=== PATIENT | female | born 1945 | race Caucasian/White ===

== ENCOUNTER 2024-12-29 10:11 | Inpatient (IN) | payer MEDICARE, BC, SELFPAY ==
[2024-12-29] VITALS (10 sets, daily range): BP systolic 127–236; BP diastolic 64–141; PULSE 64–82; RESP 15–20; TEMP 36.1–37; O2SAT 96–99
--- NOTE | 2024-12-29 | XR_ITS ---
Examination: MRI brain without intravenous contrast. Date and time of exam: December 29, 2024 at 1624 hrs. Indications: Altered mental status confusion with left-sided body numbness beginning 2 days ago Technique: Multiple axial and sagittal images of the brain obtained. Siemens high-resolution 1.5 Ginny short bore scanners utilized. Sagittal sections, T1-weighted, TR 500, TE 14, are performed. Axial sections proton-density and T2-weighted have been obtained. Inversion recovery axial images, TR 9, 260, TE 111, TI 2500. Diffusion weighted images, axial sections, TR 4800, TE 128, B value 1000 Axial sections, ADC map, TR 4800, TE 128 Findings: Enlargement of the sella turcica is not present. The optic chiasm and infundibular are not remarkable. Prepontine and interpeduncular cisterns are not enlarged. There is no localized enlargement of the medulla or karrie. Fourth ventricle and cerebellar tonsils appear normal in position. No subacute area of hemorrhage density is seen. Mass in the cerebellopontine angle region is not evident. Globes symmetrical. Orbital musculature including medial lateral rectus muscles do not exhibit abnormality. Diffusion-weighted images demonstrate no focus of restricted diffusion. Increased white matter signal prominent Mass effect upon the ventricular system is not identified. Impression: Negative for acute hemorrhage mass effect or midline shift No acute infarct Prominent chronic microvascular white matter change
--- NOTE | 2024-12-29 10:17 | EKG_ITS ---
[facility] Test Date: 2024-12-29 Pat Name: JERI AZUL Department: Room: - Gender: Female Sports Analyst: : 1945 Requested By: Raul Sharp Order Number: [id number] Reading MD: Raul Sharp Measurements Intervals [place] Rate: 65 P: 21 MT: 188 QRS: -36 QRSD: 102 T: 20 QT: 407 QTc: 426 Interpretive Statements SINUS RHYTHM LEFT AXIS DEVIATION [QRS AXIS < -30] VOLTAGE CRITERIA FOR LVH [MEETS CRITERIA IN ONE OF: R(aVL), S(V1), R(V5), R(V5/V6)+S(V1)] Compared to ECG 03/19/2024 14:44:11 No significant changes /store/S0/[id number].pdf
--- NOTE | 2024-12-29 10:18 | PC.NURSE ---
PT BIB [facility] PT CC: HTN PT STATES SHE FEELS FOGGY, GSC 15 PER EMS, INFORMED PT EMS THAT 2 DAYS PRIOR SHE HAD NUMBNESS TO RIGHT ARM AND FACIAL DROOP FOR 30 MIN BUT WENT AWAY. PT BP PER EMS WAS 260/100. 259/128. PT HAS HX OF HYPOTENSION. STOPPED A B/P MED NOT SURE WHICH ONE
--- NOTE | 2024-12-29 10:25 | PC.NURSE ---
PT IS AAOX4 SHE IS HAVING SOME DIFFICULTY FINDING WORDS, SHE STATES SHE WOKE UP 0600 AND FELT FINE FED HER ANIMALS AND HAD COFFEE WENT TO SIT AT [employer] AND FELT FOGGY AND DIZZY WAS TRYING TO FIND WORDS. WORKER CALLED AMBULANCE, SHE ALSO STATES THAT TWO DAYS PRIOR SHE HAD NUMBNESS AND FACIAL DROOP, TWICE BUT WENT AWAY WITH IN 30 MIN. SHE STATES LKW 0630.
--- NOTE | 2024-12-29 10:31 | PC.NURSE ---
STROKE ALERT CALLED [phone]
--- NOTE | 2024-12-29 10:32 | XR_ITS ---
Examination: CT brain head without contrast. 2-D sagittal coronal reconstructions Date and time of exam:December 29, 2024 10:30 AM Indications: Stroke alert, onset dizziness with slurred speech beginning 4 hours ago CTDI: vol (mGy):50.4 DLP: (mGycm):1021 Technique: Multiple CT axial sections of the brain have been obtained, 5 mm slice thickness. Contrast has not been administered. 2-D sagittal, coronal reconstructions have been obtained Low dose protocols were performed. One or more of the following dose reduction techniques were used; automated exposure control, adjustment of the mA and/or KV according to patient size, use of iterative reconstruction technique. Findings: No significant ventricular enlargement. Old infarct left cerebellar hemisphere Intra-axial or extra-axial hemorrhage density is not seen. No mass effect or midline shift Basal cisterns are not remarkable. Fourth ventricle is midline. Cranial vault intact. Impression: Negative for acute hemorrhage, mass effect or midline shift Consider brain MRI MRA without contrast, stroke protocol, follow-up
--- NOTE | 2024-12-29 10:32 | XR_ITS ---
Examination: CTA carotids with intravenous contrast CTA brain, head with intravenous contrast. 2-D sagittal, coronal reconstructions. 3-D reconstructions. Exam date and time: December 29, 2024 at 1055 hrs. CTDI: vol (mGy) 45.2 DLP: (mGycm) 505 Technique: Multiple CTA axial brain, head carotid images post intravenous contrast injection 75 cc, Isovue-370. 2-D sagittal, coronal reconstructions. 3-D reconstructions, 3-D post processing including vascular maximum intensity projection images. Low dose protocols were performed. One or more of the following dose reduction techniques were used; automated exposure control, adjustment of the mA and/or KV according to patient size, use of iterative reconstruction technique. Findings: Parenchymal disease which may represent scarring in the right upper lobe No significant common carotid carotid bifurcation or internal carotid artery stenoses Dominant right vertebral artery in the neck with no critical stenoses No cerebral large vessel arterial occlusions or thrombus Moderate calcification juxtasellar portions of the internal carotid arteries Impression: Parenchymal disease in the right upper lobe, recommend correlation with PA lateral chest x-ray No significant neck arterial stenoses No cerebral large vessel arterial occlusions or thrombus
--- NOTE | 2024-12-29 10:47 | EDNOTE_ITS ---
Neuro Symptoms Deficit-RME/HPI General Chief Complaint: Dizziness Stated Complaint: HYPERTENSION Time Seen by Provider: 12/29/24 10:31 Arrival date/time: 12/29/24 10:11 RME / HPI RME / HPI Narrative: 79 year old female history of hypertension presents to the ED BIBA from home for evaluation of dizziness and feeling foggy this morning. Patient states she woke at 06:00 AM today and felt at her baseline, made herself coffee and fed her dogs. States at about 06:30 AM she sat down in front of her computer and was trying to look for a receipt. However stated she had troubles and during that time felt confused and foggy . Patient additionally reported 2 days ago and while at the store grocery shopping she suddenly felt left sided numbness that had resolved on its own within 30 minutes. Per medics, patient hypertensive 260/100, BS 104. Patient denies fevers, chills, chest pain, sweats, abdominal pain, n/v/d, or urinary symptoms. Denies loss of movement/strength. Related Data Home Medications ?Medication ?Instructions ?Recorded ?Confirmed meloxicam 15 mg tablet 15 mg PO QDAY 12/29/2412/29 rosuvastatin 20 mg tablet 20 mg PO QDAY 12/29/2412/29 Previous Rx's ?Medication ?Instructions ?Recorded Metoprolol Tartrate 25 mg PO BID 60 days #0 tabs 07/30/14 amlodipine 5 mg tablet (Norvasc) 5 mg PO QDAY #30 tabs 07/30/14 valsartan 80 mg tablet (Diovan) 80 mg PO QDAY 30 days #0 tabs 07/30/14 cefuroxime axetil 500 mg tablet 500 mg PO BID #14 tabs 03/19/24 Allergies Allergy/AdvReac Type Severity Reaction Status Date / Time NKA* Allergy Uncoded 07/29/14 13:19 Review of Systems Review of Systems Narrative Review of Systems: Constitutional: DENIES; Fevers Eyes: DENIES; Loss of vision Head/Ear/Nose: DENIES; Loss of hearing Throat: DENIES; Dysphagia Cardiovascular: DENIES; Chest pain, dyspnea or syncope Respiratory: DENIES; Shortness of breath Gastrointestinal: DENIES; Rectal bleeding or melena. Genitourinary: DENIES; Dysuria (painful or difficult urination) Musculoskeletal: DENIES; Arthralgia (pain in a joint),; Skin: DENIES; Rash Neurological: SEE HPI +word finding difficulties, feeling foggy and confused Psychiatric: DENIES; recent major life stressor, emotional problem, illicit drug use or abuse Endocrinology: DENIES; Weight change Hematologic/Lymphatic: DENIES; Abnormal bruising Allergic/Immunologic: DENIES; Urticaria (hives) Past Medical History Past Medical History CARDIAC: Positive Cardiac Disorders, Hypercholesterolemia and Hypertension RESPIRATORY: Positive Bronchitis and Pneumonia REPRODUCTIVE: Positive Previous Pregnancies (2) MUSCULOSKELETAL: Positive Musculoskeletal Disorders, Arthritis and Degenerative Disk Disease ENT: Positive Cataracts (BILATERAL) PSYCHO/SOCIAL: Positive Bipolar Disorder, Depression and Anxiety OTHER HISTORY: Positive Chicken Pox and Cervical Cancer (UTERUS REMOVAL) Surgical History SURGICAL: Positive Oral Surgery (DENTAL IMPLANT), Adenoidectomy and Throat Surgery (TONSILS) Social History SMOKING STATUS: Former smoker ED Exam Narrative Physical exam: Physical Exam: General: The vital signs were reviewed. Systolic blood pressure is quite high in the 213 range. Otherwise the patient is non-toxic, in no apparent distress and appears healthy with a patent airway, no respiratory distress and has no apparent circulatory problems. Head & Scalp: Normocephalic, atraumatic. Face: Appears normal and is without lesions, deformity. Ears: Left external pinna appears normal. Right external pinna appears normal. Eyes: The sclera is anicteric. No obvious photophobia. The Left and Right Orbit/Lid/Conjunctiva appears normal without swelling, discoloration or injection. Nose: The nose is without deformity, discharge or tenderness; Throat: Appears normal. The mucous membranes are pink and moist without exudates, redness or mass seen. The tongue appears normal. Neck: The neck is supple and no apparent mass or adenopathy. Chest: The chest wall is normal in size and symmetry and has no chest wall tenderness or crepitus. The patient displays normal ventilator effort without retractions, accessory muscle use and has adequate air movement bilaterally with no wheezes and no rales. Cardiovascular: Regular rate and rhythm; No murmurs, rubs, or gallops; Gastrointestinal: The abdomen appears normal. No obvious hernias or mass. The abdomen is soft and benign, non-distended, with no pain, no guarding and no rebound tenderness. Bowel sounds are present and normal sounding. No CVA tenderness. Genitourinary: Back/Spine: Extremities/Musculoskeletal/lymphatic: The bilateral upper and lower extremities are warm. There is no evidence of arterial insufficiency. There is no evidence of venous insufficiency/edema. The patient spontaneously moves bilateral upper and lower extremities with no pain and no limitation of movement. There is no apparent, injury or trauma. Skin: The skin is warm, dry and intact. No rashes. No petechia. No purpura. No abnormal bruising. The color is appropriate with no cyanosis. Mental status/Psychiatric: Mental status is appropriate for age. The patient has no apparent delusions, visual hallucinations, no apparent audible hallucinations. The patient has no apparent suicidal thoughts/ideation and no apparent homicidal thoughts/ideation. Neurological: The patient is awake, alert, interactive, cordial, cooperative and is oriented to name and situation. The patient follows commands and answers historical question with no impairment. There is no visual disturbance apparent. The pupils are equal and reactive bilaterally with normal eye movements and no diplopia The bilateral upper and lower extremities have normal strength, normal range of motion and normal functioning. She appears to have some subtle word finding or difficulties answering questions yet is able to communicate fairly clearly. The gait, station and balance appear to be baseline with no acute change Course Quality Measures Suspected type of Stroke: Non Acute Last known well (date): 12/29/24 Last known well (time): 06:30 Tenecteplase given: Reason(s) TPA not given: Stroke severity too mild (non-disabling) not given stroke Orders Category Date Time Status Bedside Blood Glucose NOW Care 12/29/24 10:32 Completed Planting Material Unloader Q4H Care 12/29/24 10:32 Active Continuous Pulse Oximetry NOW Care 12/29/24 10:32 Completed EKG (ED ONLY) *Do not use* NOW Care 12/29/24 10:17 Completed In and Out Catheter NEEDED Care 12/29/24 10:32 Active Insert IV NOW Care 12/29/24 10:32 Active MRI Screening NOW Care 12/29/24 14:44 Active NIH Stroke Scale now Care 12/29/24 10:32 Active NPO NOW Care 12/29/24 10:32 Active Nurse Swallow Screen x1 Care 12/29/24 10:32 Active Consult to Neurology / Tele-Neurology Routine Cons 12/29/24 10:32 Active Consult to Neurology / Tele-Neurology Stat Cons 12/29/24 14:[address] angio stroke protocol Stat Exams 12/29/24 10:[address] stroke protocol Stat Exams 12/29/24 10:32 Completed EKG (ED Only) Stat Exams 12/29/24 10:17 Draft MR head/brain wo con Stat Exams 12/29/24 Taken CBC Stat Lab 12/29/24 11:11 Completed Comprehensive Metabolic Panel Stat Lab 12/29/24 11:11 Completed Drug Screen,Urine Stat Lab 12/29/24 11:11 Completed HCG Titer if Positive Stat Lab 12/29/24 11:11 Completed Magnesium Stat Lab 12/29/24 11:11 Completed Partial Thromboplastin Time Stat Lab 12/29/24 11:11 Completed Prothrombin Time with INR Stat Lab 12/29/24 11:11 Completed Troponin I Stat Lab 12/29/24 11:11 Completed Urinalysis Stat Lab 12/29/24 11:11 Completed Urine Culture Stat Lab 12/29/24 11:11 Received Clopidogrel [Plavix] Med 12/29/24 14:43 Discontinued 300 mg PO X1 ONE Labetalol IV [Trandate IV] Med 12/29/24 11:18 Discontinued 10 mg IVP X1 ONE Ondansetron Inj [Zofran Inj] Med 12/29/24 10:32 Active 4 mg IV Q4HR PRN hydrALAZINE INJ [Apresoline Inj] Med 12/29/24 11:17 Discontinued 10 mg IV X1 ONE Oxygen Delivery NOW RT 12/29/24 10:32 Active Vital Signs Vital signs: Vital Signs Pulse Rate 64 12/29/24 10:30 Neuro Symptoms / Deficit MDM Narrative MDM Narrative:: Kimberly Farley am scribing for and in the presence of Dr. Sharp. Patient presents with word finding problems a confusional state and a very high blood pressure and patient reports having lots of anxiety and uncertain if she has and hypertensive encephalopathy with confusion versus a stroke or TIA. Because uncertain had a stroke alert was called and patient had a CT and CTA which both came back negative. The teleneurologist called back and discussed the case at length and he agreed we should be lowering the blood pressure. Reevaluation of the patient reveals the patient to be improved her blood pressure is much improved and her confusional state seems to be resolved at this time. Dr. Bauman was called but left a message to call back at 1447 hrs. Medical workup reveals a CBC that is unremarkable. PT/INR within normal limits copies of metabolic panel has normal electrolytes normal renal function glucose was 109 transaminases bilirubin were normal. Troponin and BNP were negative urinalysis was negative urine drug screen was negative also. Patient admitted to hospitalist for MRI and further workup. A page Dr Bauman neurology was made but she was tied up and will call back.>> Sh ould be noted that Dr. Huizar did call back at a later time and will be consulting on the case. MRI and Plavix were the recommendations of the teleneurologist. So the summary is that is uncertain what this confusional state possible apraxia possible aphasia which is better but not totally resolved and this is related to the hypertensive emergency or is this a TIA with improvement or stroke is not seen. Because of the stroke alert to help sort this out in the and multiple reevaluations of the critical care patient. Should be noted I reevaluated patient multiple times and her overall demeanor was much improved and her anxiety level clearly improved also. Patient data External records reviewed:: [facility] previous records (I reviewed ED visit on 03/19/2024) and EMS form Clinical information provided by:: patient and EMS Social determinants that could affect healthcare access:: none Patient has the following chronic illnesses:: Hypertension How is presenting disease/condition affected by chronic disease/condition?: exacerbated by Evaluation data The following diagnostics were reviewed and interpreted by me:: lab results, radiology exam(s) and EKG tracing(s) (Sinus rhythm, rate 65, left axis deviation, no STEMI. ) Lab and/or radiology exams considered but not ordered:: None Interpretation Summary: Ordering Physician: Raul Sharp MD Date of Service: 12/29/24 Procedure(s): CT stroke protocol Accession Number(s): [id number] cc: Raul Sharp MD; Sergei Storm MD~ Examination: CT brain head without contrast. 2-D sagittal coronal reconstructions Date and time of exam:December 29, 2024 10:30 AM Indications: Stroke alert, onset dizziness with slurred speech beginning 4 hours ago CTDI: vol (mGy):50.4 DLP: (mGycm):1021 Technique: Multiple CT axial sections of the brain have been obtained, 5 mm slice thickness. Contrast has not been administered. 2-D sagittal, coronal reconstructions have been obtained Low dose protocols were performed. One or more of the following dose reduction techniques were used; automated exposure control, adjustment of the mA and/or KV according to patient size, use of iterative reconstruction technique. Findings: No significant ventricular enlargement. Old infarct left cerebellar hemisphere Intra-axial or extra-axial hemorrhage density is not seen. No mass effect or midline shift Basal cisterns are not remarkable. Fourth ventricle is midline. Cranial vault intact. Impression: Negative for acute hemorrhage, mass effect or midline shift Consider brain MRI MRA without contrast, stroke protocol, follow-up Dictated By: Sergei Storm MD Signed By: <Electronically signed by Sergei Storm MD in [place]> 12/29/24 1047 Ordering Physician: Raul Sharp MD Date of Service: 12/29/24 Procedure(s): CT angio stroke protocol Accession Number(s): [id number] cc: Raul Sharp MD; Sergei Storm MD~ Examination: CTA carotids with intravenous contrast CTA brain, head with intravenous contrast. 2-D sagittal, coronal reconstructions. 3-D reconstructions. Exam date and time: December 29, 2024 at 1055 hrs. CTDI: vol (mGy) 45.2 DLP: (mGycm) 505 Technique: Multiple CTA axial brain, head carotid images post intravenous contrast injection 75 cc, Isovue-370. 2-D sagittal, coronal reconstructions. 3-D reconstructions, 3-D post processing including vascular maximum intensity projection images. Low dose protocols were performed. One or more of the following dose reduction techniques were used; automated exposure control, adjustment of the mA and/or KV according to patient size, use of iterative reconstruction technique. Findings: Parenchymal disease which may represent scarring in the right upper lobe No significant common carotid carotid bifurcation or internal carotid artery stenoses Dominant right vertebral artery in the neck with no critical stenoses No cerebral large vessel arterial occlusions or thrombus Moderate calcification juxtasellar portions of the internal carotid arteries Impression: Parenchymal disease in the right upper lobe, recommend correlation with PA lateral chest x-ray No significant neck arterial stenoses No cerebral large vessel arterial occlusions or thrombus Dictated By: Sergei Storm MD Signed By: <Electronically signed by Sergei Storm MD in [place]> 12/29/24 1134 Medications / Prescriptions Medications or Prescriptions considered but not ordered:: None Medication administrations:: Medication Administration History Ondansetron HCl (Ondansetron Inj 2 Mg/Ml Inj 2 Ml) 4 mg IV Q4HR PRN PRN Reason: NAUSEA OR VOMITING Stop: 01/28/25 10:31 Discontinued Medications Clopidogrel Bisulfate (Clopidogrel Bisulfate 75 Mg Tablet) 300 mg PO X1 ONE Stop: 12/29/24 14:44 Last Admin: 12/29/24 15:14 Dose: 300 mg Documented By: [facility] Hydralazine HCl (Hydralazine Inj 20 Mg/Ml Vial) 10 mg IV X1 ONE Stop: 12/29/24 11:18 Last Admin: 12/29/24 11:22 Dose: 10 mg Documented By: BD Labetalol HCl (Labetalol Inj 5 Mg/Ml Vial 20 Ml) 10 mg IVP X1 ONE Stop: 12/29/24 11:19 Last Admin: 12/29/24 15:10 Dose: Not Given Documented By: [facility] Non-Admin Reason: Change of Condition See above Consultations Consultation(s) initiated? (list below): Yes Consultation #1 (Physician, Specialty, Details): I spoke with teleneurologist Dr. Malloy. Discussed patients PMHx, HPI, ED course, exam findings, and radiology results. States patient is not a tpa candidate 2/2 symptoms resolving. Recommends starting the patient on Plavix and admitting for MRI and further stroke work-up. Time: 11:30 Consultation #2 (Physician, Specialty, Details): I spoke with resident Óscar working with Dr. Chpaman. Discussed patients PMHx, HPI, ED course, exam findings, labs, and radiology results. The hospitalist agree to accept the patient for admission. Diagnosis Neuro Differential Diagnosis: convulsions, subarachnoid hemorrhage, cerebrovascular accident and transient cerebral ischemia Most likely diagnosis given after review of the tests above:: Acute confusional state Hypertensive emergency Admission Indicated Admission indicated?: indicated Admission Request Was there a request for admission?: Yes Admission Attestation Admission request attestation: Discussed case with [] from Hospitalist service regarding admission. Discussed patients ED course, exam findings, labs, and radiology results. The Hospitalist [agrees,declines] to accept the patient for admission. Disposition Plan Disposition Plan: Admit Critical Care Time Critical Care Time Critical Care Time: Yes Total Critical Care Time (min.): 45 Attestation: The high probability of sudden, clinically significant deterioration in the patient's condition required the highest level of my preparedness to intervene urgently. The services I provided to this patient were to treat and/or prevent clinically significant deterioration. Services included the following: chart data review, reviewing nursing notes and/or old charts, documentation time, sap business intelligence consultant collaboration regarding findings and treatment options, medication orders and management, direct patient care, vital sign assessments and ordering, interpreting and reviewing diagnostic studies and lab tests. Aggregate critical care time includes only time during which I was engaged in work directly related to the patient's care, as described above, whether at bedside or elsewhere in the Emergency Department. It did not include time spent performing other reported procedures or the services of residents, students, nurses or physician assistants. Discharge Plan Plan Patient Disposition: Admit Acute Care w/in Hospital Disposition Comment: Hospitalist admit Dr Bauamn consult Problem List Clinical Impression: Acute confusional state, Hypertensive emergency
[2024-12-29 11:22] LABS: Collection Type, Urine Catheter; Squamous Epithelial Cell,Urine 0 /hpf (0-5)
[2024-12-29] MEDS: hydrALAZINE INJ 20 MG/ML VIAL 10 MG IV (11:22)
[2024-12-29 11:24] LABS: Basophils % (Auto) 1 % (0-2.5); Eosinophils # (Auto) 0.1 Thou/mm3 (0.0-0.5); Eosinophils % (Auto) 1 % (0-10); Hemoglobin 15.5 g/dL (12.0-16.0); Immature Granulocytes % (Auto) 1 % (0-0); Immature Granulocytes Auto 0.04 Thou/mm3 (0.00-0.00); Lymphocytes # (Auto) 2.5 Thou/mm3 (1.0-4.8); Lymphocytes % (Auto) 32 % (10-50); Mean Corpuscular Hemoglobin 29.2 pg (25.0-35.0); Mean Corpuscular Volume 89 fL (80-100); Monocytes # (Auto) 0.8 Thou/mm3 (0.0-0.8); Monocytes % (Auto) 10 % (0-12); Neutrophils # (Auto) 4.3 Thou/mm3 (1.8-7.7); Neutrophils % (Auto) 56 % (37-80); Nucleated Red Blood Cell % 0 /100 WBC (0); Platelet Count 207 Thou/mm3 (140-440); RDW Standard Deviation 44.1 fL (36.4-46.3); Red Blood Count 5.31 Miln/mm3 (4.00-5.20); White Blood Count 7.8 Thou/mm3 (3.6-11.0)
[2024-12-29 11:29] LABS: Bacteria,Urine Rare; Bilirubin,Urine Negative (Negative); Blood,Urine Negative (Negative); Clarity,Urine Clear (Clear/Hazy); Color,Urine Lt-Yellow (Lt Yel-Yel); Glucose, Urine Negative (Negative); Ketones,Urine Negative (Negative); Leukocyte Esterase,Urine Negative (Negative); Nitrite,Urine Negative (Negative); Protein,Urine Negative (Neg - Trace); RBC,Urine < 1 /hpf (0-3); Specific Gravity,Urine 1.008 (1.001-1.035); Urobilinogen,Urine Negative mg/dL (0.0-1.0); WBC,Urine < 1 /hpf (0-5)
[2024-12-29 11:38] LABS: Partial Thromboplastin Time 33.9 Seconds (22.0-36.0)
--- NOTE | 2024-12-29 11:41 | ESCONSULT_ITS ---
Tele Neuro Consultation Consultation Date 12/29/24 Most Recent Vital Signs Last Vital Signs Pulse 67 12/29/24 11:22 BP 236/141 H 12/29/24 11:22 Laboratory-Coagulation Panel PT 11.0 Seconds (9.0-12.2) 12/29/24 11:11 INR 1.0 (0.9-1.3) 12/29/24 11:11 APTT 33.9 Seconds (22.0-36.0) 12/29/24 11:11 Consultation Narrative [facility] TeleNeurology Consult Services Patient Name:???Mary Solomon Date of :???1945 Date of Service:???12/29/2024 10:32:49 Diagnosis:?G45.9 - Transient cerebral ischemic attack, unspecified Impression: ?79 year old female with some fluctuating symptoms but currently NIH is 0 with resolved symptoms. CTA head/neck with no LVO. Not a candidate for thrombolytics as resolved symptoms and not a candidate for intervention secondary to LVO. Recommend TIA evaluation and would load with Plavix 300 mg now and then start DAPT tomorrow. Jazmyn for the consultation. Our recommendations are outlined below. Recommendations: ? Stroke/Telemetry Floor ? Neuro Checks ? Bedside Swallow Eval ? DVT Prophylaxis ? IV Fluids, Normal Saline ? Head of Bed 30 Degrees ? Euglycemia and Avoid Hyperthermia (PRN Acetaminophen) ? Bolus with Clopidogrel 300 mg bolus x1 and initiate dual antiplatelet therapy with Aspirin 81 mg daily and Clopidogrel 75 mg daily Sign Out: ? Discussed with Emergency Department Provider Advanced Imaging: CTA Head and Neck Completed. LVO:No Patient in not a candidate for JESSICA Metrics: Last Known Well: 12/29/2024 06:30:00 Dispatch Time: 12/29/2024 10:32:49 Arrival Time: 12/29/2024 10:11:00 Initial Response Time: 12/29/2024 10:35:45Symptoms: Trouble with speaking. Initial patient interaction: 12/29/2024 10:40:06 NIHSS Assessment Completed: 12/29/2024 10:49:17Patient is not a candidate for Thrombolytic. Thrombolytic Medical Decision: 12/29/2024 10:49:19Patient was not deemed candidate for Thrombolytic because of following reasons: Resolved symptoms . CT head showed no acute hemorrhage or acute core infarct. Primary Provider Notified of Diagnostic Impression and Management Plan on: 12/29/2024 11:29:31 History of Present Illness:Patient is a 79 year old Female. Patient was brought by EMS for symptoms of Trouble with speaking. This is a 79 year old female presenting with trouble with dizziness and trouble with speaking at this point and she states she feels mildly confused as well. BP was very high here, she has received some medicine to bring it down. She states she is doing ok at this point but just off . Admits to trouble with stress and having some issues with confusion. Asked to see her for further evaluation. Past Medical History: ?Hypertension ?Hyperlipidemia Medications: No Anticoagulant use? No Antiplatelet use Reviewed EMR for current medications Allergies:? Reviewed Social History: Drug Use: No Family History: There is no family history of premature cerebrovascular disease pertinent to this consultation ROS : 14 Points Review of Systems was performed and was negative except mentioned in HPI. Past Surgical History: There Is No Surgical History Contributory To Today?s Visit Examination: BP(208/113),?Pulse(76), 1A: Level of Consciousness - Alert; keenly responsive?+ 0 1B: Ask Month and Age - Both Questions Right?+ 0 1C: Blink Eyes & Squeeze Hands - Performs Both Tasks?+ 0 2: Test Horizontal Extraocular Movements - Normal?+ 0 3: Test Visual Mckeon - No Visual Loss?+ 0 4: Test Facial Palsy (Use Grimace if Obtunded) - Normal symmetry?+ 0 5A: Test Left Arm Motor Drift - No Drift for 10 Seconds?+ 0 5B: Test Right Arm Motor Drift - No Drift for 10 Seconds?+ 0 6A: Test Left Leg Motor Drift - No Drift for 5 Seconds?+ 0 6B: Test Right Leg Motor Drift - No Drift for 5 Seconds?+ 0 7: Test Limb Ataxia (FNF/Heel-Aguirre) - No Ataxia?+ 0 8: Test Sensation - Normal; No sensory loss?+ 0 9: Test Language/Aphasia - Normal; No aphasia?+ 0 10: Test Dysarthria - Normal?+ 0 11: Test Extinction/Inattention - No abnormality?+ 0 NIHSS Score:?0 Pre-Morbid Modified Pao Scale:0 Points = No symptoms at all Spoke with :?Raul Sharp MD This consult was conducted in real time using interactive audio and video technology. Patient was informed of the technology being used for this visit and agreed to proceed. Patient located in hospital and provider located at home/office setting. Patient is being evaluated for possible acute neurologic impairment and high probability of imminent or life-threatening deterioration. I spent total of 35 minutes providing care to this patient, including time for face to face visit via telemedicine, review of medical records, imaging studies and discussion of findings with providers, the patient and/or family. Dr Ashwin Malloy [facility] For Inpatient follow-up with [facility] physician please call [facility] at . As we are not an outpatient service for any post hospital discharge needs please contact the hospital for assistance. If you have any questions for the [facility] physicians or need to reconsult for clinical or diagnostic changes please contact us via [facility] at .
[2024-12-29 11:48] LABS: HCG Titer if Positive Negative
[2024-12-29 11:51] LABS: Amphetamine/Methamp Scrn,U Negative (Negative); Barbiturate Screen,Urine Negative (Negative); Benzodiazepines Screen,Urine Negative (Negative); Benzoylecgonine Screen, Ur Negative (Negative); Fentanyl Screen,Urine Negative (Negative); Opiate Screen,Urine Negative (Negative); THC Screen,Urine Negative (Negative)
[2024-12-29 11:58] LABS: Alanine Aminotransferase 17 U/L (10-49); Albumin, Serum 4.5 gm/dL (3.4-4.8); Alkaline Phosphatase 92 U/L (46-116); Anion Gap 7 (7-16); Aspartate Amino Transferase 18 U/L (0-34); BUN/Creatinine Ratio 28 Ratio (12-20); Bilirubin,Total 0.6 mg/dL (0.3-1.2); Blood Urea Nitrogen 17 mg/dL (9-23); Calcium 9.5 mg/dL (8.3-10.6); Calcium (Corrected) 9.5 mg/dL (8.5-10.1); Carbon Dioxide 26.9 mMol/L (20.0-31.0); Chloride 105 mMol/L (98-107); Creatinine (Component) 0.6 mg/dL (0.6-1.3); Globulin 2.3 gm/dL (2.3-3.5); Glucose 109 mg/dL (74-106); Magnesium 2.1 mg/dL (1.6-2.6); Osmolality,Calculated 280 (275-295); Potassium 4.5 mMol/L (3.4-5.1); Sodium 139 mMol/L (136-145); Total Protein 6.8 gm/dL (5.7-8.2); Troponin I < 0.020 ng/mL (0.0-0.045); eGFR > 60 See Note
--- NOTE | 2024-12-29 12:28 | PC.NURSE ---
NOTIFIED DR. COUGHLIN NEW B/P 158/71 AFTER 10MG HYDRALIZINE
[2024-12-29] MEDS: CLOPIDOGREL BISULFATE 75 MG TABLET 300 MG PO (15:14)
--- NOTE | 2024-12-29 15:53 | PD.RESCONSUL ---
HPI Data of Consult Primary Care Provider: Shantel Galo MD Consult Narrative Reason for consult: slurred speech History of present illness: 79 year old female with PMH of HTN and HLD presented to the ED with some fluctuating symptoms such as confusion, dizziness and difficulty finding words but currently NIH is 0 with resolved symptoms. When EMS picked up they stated her systolic BP was 260s. When she arrived to the ED her BP was 236/141 CT head was negative. CTA head/neck with no LVO. Not a candidate for thrombolytics as resolved symptoms and not a candidate for intervention secondary to LVO. Patient has been going through some family issues, indicating elevated levels as stress more than usual. Neurology consulted for possible CVA/TIA. cc:: cc: Review of Systems Review of Systems Systems Reviewed: All systems reviewed, normal except as documented Exam Vital Signs Temp Pulse Resp BP Pulse Ox O2 Del Method 98.1 F 75 18 127/64 96 Room Air 12/29/24 14:23 12/29/24 14:23 12/29/24 14:23 12/29/24 14:23 12/29/24 14:23 12/29/24 14:23 Narrative Exam Constitutional: AOx3, able to speak full sentences HEENT: NC/AT, PERRLA, oral mucosa moist, neck supple CVS: RRR, S1-S2 present, no murmurs RESP: CTAB GI: non distended, non tender to palpation, NBS MSK: full ROM, no peripheral edema, peripheral pulses present Skin: warm and dry, no rashes NEURO:? ? MENTAL STATUS:?AAOx3 ? LANG/SPEECH: Fluent, intact naming, repetition & comprehension ? CRANIAL NERVES: ? II: Pupils equal and reactive, no RAPD,?normal visual field and fundus ? III, IV, : EOM intact, no gaze preference or deviation ? V: normal ? VII: no facial asymmetry ? VIII: normal hearing to speech ? MOTOR: 5/5 in both upper and lower extremities ? REFLEXES: 2/4 throughout,?bilateral flexor plantars ? SENSORY: Normal to touch, temperature & pin prick in all extremiteis ? COORD: Normal finger to nose and heel to floyd, no tremor, no dysmetria Results Labs 12/30/24 04:50 12/30/24 04:50 Labs: Short CBC 12/29/24 Range/Units 11:11 WBC 7.8 (3.6-11.0) Thou/mm3 Hgb 15.5 (12.0-16.0) g/dL Hct 47.0 H (36.0-46.0) % Plt Count 207 (140-440) Thou/mm3 BMP 12/29/24 11:11 Sodium 139 Potassium 4.5 Chloride 105 Carbon Dioxide 26.9 BUN 17 Creatinine 0.6 Glucose 109 H Calcium 9.5 Cardiac Enzymes 12/29/24 Range/Units 11:11 Troponin I < 0.020 (0.0-0.045) ng/mL Liver Function 12/29/24 Range/Units 11:11 Total Bilirubin 0.6 (0.3-1.2) mg/dL AST 18 (0-34) U/L ALT 17 (10-49) U/L Alkaline Phosphatase 92 (46-116) U/L Albumin 4.5 (3.4-4.8) gm/dL Urine 12/29/24 Range/Units 11:11 Urine Color Lt-Yellow (Lt Yel-Yel) Urine Clarity Clear (Clear/Hazy) Urine pH 7.0 (5.0-7.0) Ur Specific [place] 1.008 (1.001-1.035) Urine Protein Negative (Neg - Trace) Urine Glucose (UA) Negative (Negative) Quality Measures Quality Measures stroke Suspected type of Stroke: Non Acute Last known well (date): 12/29/24 Last known well (time): 06:30 Tenecteplase given: Reason(s) Tenecteplase not given: Stroke severity too mild (non-disabling) not given Rehab services: PT evaluation ordered and Speech Language Pathology eval ordered VTE Prophylaxis: pharmaceutical Antithrombotic by day 2:: not indicated (describe) Statin ordered: >75 y/o moderate or high intensity dose Anticoagulation ordered for A-fib or flutter (current or hx): not indicated Advance care planning discussed with:: patient Medications Home Medications and Allergies Home Medications ?Medication ?Instructions ?Recorded ?Confirmed ?Type rosuvastatin 20 mg tablet 20 mg PO QDAY 12/29/24 12/29/24 History Allergies Allergy/AdvReac Type Severity Reaction Status Date / Time No Known Allergies Allergy Unverified 12/30/24 08:07 Visit Medications Ondansetron HCl (Ondansetron Inj 2 Mg/Ml Inj 2 Ml) 4 mg IV Q4HR PRN PRN Reason: NAUSEA OR VOMITING Stop: 01/28/25 10:31 Discontinued Medications Clopidogrel Bisulfate (Clopidogrel Bisulfate 75 Mg Tablet) 300 mg PO X1 ONE Stop: 12/29/24 14:44 Last Admin: 12/29/24 15:14 Dose: 300 mg Hydralazine HCl (Hydralazine Inj 20 Mg/Ml Vial) 10 mg IV X1 ONE Stop: 12/29/24 11:18 Last Admin: 12/29/24 11:22 Dose: 10 mg Labetalol HCl (Labetalol Inj 5 Mg/Ml Vial 20 Ml) 10 mg IVP X1 ONE Stop: 12/29/24 11:19 Last Admin: 12/29/24 15:10 Dose: Not Given Assessment & Plan Plan #CVA/TIA #Hypertesion emergency Assessmement: Etiology of symptoms are likely 2/2 to HTN emergency due to elevated BP. NIHSS 0 CT head negative CTA h/n negative for PRACTICE MANAGER Patient was given hydralazine and loading dose clopidrogel 300mg dose x1 Recommendations: Neuro Checks q4hr DVT Prophylaxis IV Fluids, Normal Saline Euglycemia and Avoid Hyperthermia (PRN Acetaminophen) Pending MR brain read Bolus with Clopidogrel 300 mg bolus x1 and initiate dual antiplatelet therapy with Aspirin 81 mg daily and Clopidogrel 75 mg daily - Patient's care was discussed with my attending physician, Dr. Mitul Guerrero MD Internal Medicine PGY-3 Attending Provider Attestation/Addendum I personally have seen and examined the patient at the bedside and I agree with resident's findings, assessment and plan of care. Patient is a admitted for observation tonight follow-up with official report of the MRI brain
--- NOTE | 2024-12-29 16:23 | ESHP_ITS ---
<Statement entered by Carroll Cantrell MD - 12/30/24 10:34> Senior Resident Attestation: I supervised/discussed management plan with agronomy internship physician Dr. Ramirez, and was involved in the care of this patient. I personally saw and examined the patient and discussed the assessment and plan with the entire medicine team, including my attending. I agree with the assessment and plan as documented. 79 years old female with PMH of HTN and HLD here due to right arm and face numbness and tingling, which resolved at the time she arrived to the ED. Stroke alert was called and tele neurology was consulted, patient was admitted for further management and work up. Patient's care was discussed with attending physician, Dr. Chapman. Carroll Cantrell MD PGY-2. Documentation for date of: 12/29/24 HPI History of Present Illness History of present illness: 79 y/o female with PMHx of HTN, and HLD who comes to the ED for an evaluation of intermittent numbness and tingling in right arm and in mouth, with associated generalized weakness, fatigue and trouble with thoughts. Patient reports that for the past week she has been experiencing on and off symptoms of numbness. The first time was when she was at the store in which she felt her one of her hands going numb. A couple days later she noticed that she got some numbness around her mouth, went to a mirror and tried to smile and said she was fine. She was contemplating on coming to the ER sooner, however says that she did not because she she lives in [place] and it was far for her. He did notice this morning when she woke up and had her coffee and seen her dogs that she went to the computer and went to go pay a bill. She then started to notice some generalized weakness, fatigue and also trouble with her thoughts. She denies passing out or having loss of consciousness however she did states she felt bad enough to call an ambulance. She did says she felt dizzy and confused, however did not fall. 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 She says that she has not felt any numbness in her lower extremities right now. She denies having headache, nausea, vomiting, chest pain, shortness of breath. She does not use oxygen at home. She denies any recent travel. She sees Dr. Hughes as her geographic information systems engineer. She denies having history of stroke or heart attack. She said she has had stress test in the past which have been normal. No other complaints at this time ED course: Patient blood pressure of 230/41, heart rate 67, respiratory of 20, afebrile, saturating 96% room air. She was worked up was found to have a sodium of 139, potassium 4.5, BUN/creatinine of 17 and 0.6 respectively, glucose 109, white count 7.8, hemoglobin of 15.5, coag panel negative, troponin negative x 1, U tox and urine analysis negative, magnesium 2.1. Teleneuro was consulted and evaluated patient and gave patient NIHSS score of 0. Patient was given loading Plavix 300 mg x 1 and hydralazine 10 mg x1. Medicine was consulted and patient was admitted to floors. 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 One of her sons , daughter still living. Drinks a cocktail every night, used to be a heavy smoker 2 pack a day for about 25 years, no history of IV or oral drug use. Uses her ranch work for exercise. No recent travel. Says she has been under a lot of stress lately Review of Systems Review of Systems Narrative Review of Systems: Constitutional: No fever, chills, +fatigue and weakness, no weight loss HEENT: No eye pain, vision loss, ear pain, hearing loss, dysphagia, Cardiovascular: No chest pain, palpitations, edema, pain with walking Respiratory: No cough, shortness of breath, wheezing GI: No NVD, abdominal pain, constipation, blood in stool, loss of appetite, heartburn Extremities: No presence of pitting edema MSK: No back pain, joint pain, joint swelling Neuro: No dizziness, + numbness and tingling, no weakness, headaches, seizures, tremors Psych: No anxiety, depression Exam Vital Signs Temp Pulse Resp BP Pulse Ox O2 Del Method 98.1 F 75 18 127/64 96 Room Air 12/29/24 14:23 12/29/24 14:23 12/29/24 14:23 12/29/24 14:23 12/29/24 14:23 12/29/24 14:23 Narrative Exam General: AAOx3, appears to be in some distress, emotional, obese HEENT: Moist mucous membranes, conjunctiva clear, EOMI, PERRLA, Cardiovascular: Pansystolic murmur heard, radial pulses +2 bilat, RRR Pulmonary: CTAB bilat no cough, no wheezing GI: No tenderness to light or deep palpitation, no guarding, rigidity, rebound tenderness or distension Extremities: No presence of trace or pitting edema in lower extremities bilaterally, dorsalis pedis pulses +2 bilaterally Neuro: AAOx3, no focal motor or sensory deficits in the UE or LE bilat, has trouble with some thoughts Psych: Cooperative, a bit anxious Results: Labs 12/30/24 04:50 12/30/24 04:50 Labs: Short CBC 12/29/24 Range/Units 11:11 WBC 7.8 (3.6-11.0) Thou/mm3 Hgb 15.5 (12.0-16.0) g/dL Hct 47.0 H (36.0-46.0) % Plt Count 207 (140-440) Thou/mm3 BMP 12/29/24 11:11 Sodium 139 Potassium 4.5 Chloride 105 Carbon Dioxide 26.9 BUN 17 Creatinine 0.6 Glucose 109 H Calcium 9.5 Cardiac Enzymes 12/29/24 Range/Units 11:11 Troponin I < 0.020 (0.0-0.045) ng/mL Liver Function 12/29/24 Range/Units 11:11 Total Bilirubin 0.6 (0.3-1.2) mg/dL AST 18 (0-34) U/L ALT 17 (10-49) U/L Alkaline Phosphatase 92 (46-116) U/L Albumin 4.5 (3.4-4.8) gm/dL Urine 12/29/24 Range/Units 11:11 Urine Color Lt-Yellow (Lt Yel-Yel) Urine Clarity Clear (Clear/Hazy) Urine pH 7.0 (5.0-7.0) Ur Specific [place] 1.008 (1.001-1.035) Urine Protein Negative (Neg - Trace) Urine Glucose (UA) Negative (Negative) Quality Measures Quality Measures stroke Suspected type of Stroke: Non Acute Last known well (date): 12/29/24 Last known well (time): 06:30 Tenecteplase given: Reason(s) Tenecteplase not given: Stroke severity too mild (non-disabling) not given Rehab services: PT evaluation ordered VTE Prophylaxis: pharmaceutical Antithrombotic by day 2:: ordered Statin ordered: >75 y/o moderate or high intensity dose Anticoagulation ordered for A- fib or flutter (current or hx): not indicated Advance care planning discussed with:: patient Medications Home Medications and Allergies Home Medications ?Medication ?Instructions ?Recorded ?Confirmed ?Type rosuvastatin 20 mg tablet 20 mg PO QDAY 12/29/2412/29 History Allergies Allergy/AdvReac Type Severity Reaction Status Date / Time No Known Allergies Allergy Unverified 12/30/24 08:07 Visit Medications Ondansetron HCl (Ondansetron Inj 2 Mg/Ml Inj 2 Ml) 4 mg IV Q4HR PRN PRN Reason: NAUSEA OR VOMITING Stop: 01/28/25 10:31 Discontinued Medications Clopidogrel Bisulfate (Clopidogrel Bisulfate 75 Mg Tablet) 300 mg PO X1 ONE Stop: 12/29/24 14:44 Last Admin: 12/29/24 15:14 Dose: 300 mg Hydralazine HCl (Hydralazine Inj 20 Mg/Ml Vial) 10 mg IV X1 ONE Stop: 12/29/24 11:18 Last Admin: 12/29/24 11:22 Dose: 10 mg Labetalol HCl (Labetalol Inj 5 Mg/Ml Vial 20 Ml) 10 mg IVP X1 ONE Stop: 12/29/24 11:19 Last Admin: 12/29/24 15:10 Dose: Not Given Assessment & Plan Plan Assessment Mary Solomon is a 79 y/o female with PMHx HTN and HLD who is currently admitted for acute CVA rule out #CVA, rule out Patient could have had a TIA Patient has been experiencing some symptoms that seem to be focal for the past couple of days CT head shows no acute hemorrhage mass effect or midline shift CTA head neck shows no stenosis of LVO NIHSS Score of 0 No hx of afib, tele reviewed, appears to be NSR Plan ?Neurology consulted, appreciate recs ?Continue dual antiplatelet therapy aspirin 81 and Plavix 75 mg ?Speech therapy ?PT referral ?Neurochecks q4h ?Echo ?Follow up MRI brain #Hypertensive urgency Appears to be no end organ damage Pt came in with BP 230, with the paramedics it was recorded to be 260 SBP Pt was given Hydralazine 10 mg x1 and blood pressure has improved Will hold on adjusting further Plan: ?Do not correct SBP over 25% within first 24 hours ?Will hold on resuming home blood pressure medicines at this time #Hx of HTN #Hx of HLD Chronic, on home valsartan and metoprolol 25 mg Plan: ?Will hold on resuming home blood pressure medicines at this time as above ?Lipitor 40 mg HS #Health Maintenance Disposition: Telemetry DVT prophylaxis: Lovenox GI prophylaxis: None indicated at this time Diet: Cardiac CODE STATUS:Full Patient seen and care discussed with my senior resident, Dr. Stark, and my attending physician, Dr. Ari Ramirez, PGY-1 Attending Provider Attestation/Addendum I have discussed and was present for the essential components of the history, physical examination, diagnosis, and treatment plan with the resident. I agree with the patient's care as documented by the resident and amended herein by me. Emilio Chapman DO. Although this document has been carefully reviewed, there may still be some phonetic and other typographical errors. These errors are purely grammatical due to imperfections in the software program and should not be construed in any way to compromise the substance of the patient's medical care during this visit.
[2024-12-29] MEDS: ROSUVASTATIN 5 MG TABLET (NON-FORM) 20 MG PO (20:47)
[2024-12-30] VITALS: BP 154/67; PULSE 110; PULSE 58; RESP 12; TEMP 36.2; O2SAT 98
[2024-12-30 04:00] VITALS: BP 136/67; PULSE 55; PULSE 57; RESP 17; TEMP 36.6; O2SAT 98
[2024-12-30 05:46] LABS: Basophils # (Auto) 0.1 Thou/mm3 (0.0-0.2); Basophils % (Auto) 1 % (0-2.5); Eosinophils # (Auto) 0.2 Thou/mm3 (0.0-0.5); Eosinophils % (Auto) 3 % (0-10); Hematocrit 44.4 % (36.0-46.0); Hemoglobin 14.6 g/dL (12.0-16.0); Immature Granulocytes % (Auto) 0 % (0-0); Immature Granulocytes Auto 0.03 Thou/mm3 (0.00-0.00); Lymphocytes # (Auto) 2.7 Thou/mm3 (1.0-4.8); Lymphocytes % (Auto) 32 % (10-50); Mean Corpuscular HGB Conc 32.9 g/dl (31.0-37.0); Mean Corpuscular Hemoglobin 29.1 pg (25.0-35.0); Mean Corpuscular Volume 89 fL (80-100); Monocytes % (Auto) 12 % (0-12); Neutrophils # (Auto) 4.5 Thou/mm3 (1.8-7.7); Neutrophils % (Auto) 53 % (37-80); Nucleated Red Blood Cell % 0 /100 WBC (0); Platelet Count 204 Thou/mm3 (140-440); RDW Standard Deviation 44.9 fL (36.4-46.3); Red Blood Count 5.01 Miln/mm3 (4.00-5.20); White Blood Count 8.6 Thou/mm3 (3.6-11.0)
[2024-12-30 06:00] VITALS: BMI 35.8
[2024-12-30 06:17] LABS: Alanine Aminotransferase 18 U/L (10-49); Albumin, Serum 4.1 gm/dL (3.4-4.8); Alkaline Phosphatase 82 U/L (46-116); Anion Gap 7 (7-16); Aspartate Amino Transferase 15 U/L (0-34); BUN/Creatinine Ratio 28 Ratio (12-20); Bilirubin,Total 0.6 mg/dL (0.3-1.2); Blood Urea Nitrogen 17 mg/dL (9-23); Calcium 9.6 mg/dL (8.3-10.6); Calcium (Corrected) 9.6 mg/dL (8.5-10.1); Carbon Dioxide 26.9 mMol/L (20.0-31.0); Chloride 107 mMol/L (98-107); Creatinine (Component) 0.6 mg/dL (0.6-1.3); Estimated Creatinine Clearance 80.1 mL/min (>60); Globulin 2.1 gm/dL (2.3-3.5); Glucose 107 mg/dL (74-106); Osmolality,Calculated 282 (275-295); Potassium 4.3 mMol/L (3.4-5.1); Sodium 141 mMol/L (136-145); Total Protein 6.2 gm/dL (5.7-8.2); eGFR > 60 See Note
[2024-12-30 08:00] VITALS: BP 165/71; PULSE 65; PULSE 74; RESP 16; TEMP 36.7; O2SAT 97
[2024-12-30] MEDS: ENOXAPARIN SOD INJ 40 MG/0.4 ML SYRINGE SC (09:21)
[2024-12-30] MEDS: ASPIRIN EC 81 MG TABEC PO (09:24)
[2024-12-30] MEDS: CLOPIDOGREL BISULFATE 75 MG TABLET PO (09:24)
--- NOTE | 2024-12-30 10:08 | CHAP ---
Patient was prayed for by the Spiritual Care Volunteer outside of room. (Volunteer was in the hospital from 09:20-10:00).
--- NOTE | 2024-12-30 10:16 | ESPR_ITS ---
Documentation for date of: 12/30/24 Subjective Subjective Interval history: Patient was seen and examined at bedside. No acute overnight events. MRI was done showing no acute changes. Pending echo. Patient does not have any complaint today, all test results were discussed with the patient. Patient may be discharged later today or tomorrow if echo is negative and cleared by neurology. Exam Vital Signs Temp Pulse Resp BP Pulse Ox O2 Del Method 98.0 F 65 16 165/71 H 97 Room Air 12/30/24 08:00 12/30/24 08:00 12/30/24 08:00 12/30/24 08:00 12/30/24 08:00 12/30/24 08:00 Narrative Exam Gen: Well-developed and well-nourished female. HEENT: NCAT, PERRLA, EOMI, MMM, anicteric conjunctivae. CVS: normal S1 and S2. RRR. Mild systolic murmur. Resp: CTA B/L. No rhonchi, rales, crackles or wheezing. Abd: soft, non-tender, non-distended. BS+ in all 4 quadrants. MSK: Good ROM in BUE & BLE. No edema or rash. Neuro: CN II-XII grossly intact. Strength 5/5 in BUE & BLE. Alert and oriented x3. Psych: anxious. Objective Labs 12/30/24 04:50 12/30/24 04:50 Labs: Laboratory Results - last 24 hr 12/29/24 12/30/24 11:11 04:50 WBC 7.8 8.6 RBC 5.31 H 5.01 Hgb 15.5 14.6 Hct 47.0 H 44.4 MCV 89 89 MCH 29.2 29.1 MCHC 33.0 32.9 RDW Std Deviation 44.1 44.9 Plt Count 207 204 Neut % (Auto) 56 53 Lymph % (Auto) 32 32 Cassia % (Auto) 10 12 Eos % (Auto) 1 3 Baso % (Auto) 1 1 Neut # (Auto) 4.3 4.5 Lymph # (Auto) 2.5 2.7 Cassia # (Auto) 0.8 1.0 H Eos # (Auto) 0.1 0.2 Baso # (Auto) 0.0 0.1 Immature Gran # (Auto) 0.04 H 0.03 H Absolute Nucleated RBC 0.00 0.00 Immature Gran % 1 H 0 Nucleated RBC % 0 0 PT 11.0 INR 1.0 APTT 33.9 Sodium 139 141 Potassium 4.5 4.3 Chloride 105 107 Carbon Dioxide 26.9 26.9 Anion Gap 7 7 BUN 17 17 Creatinine 0.6 0.6 Estim Creat Clear Calc Not Performed. 80.1 eGFR > 60 > 60 BUN/Creatinine Ratio 28 H 28 H Glucose 109 H 107 H Calculated Osmolality 280 282 Calcium 9.5 9.6 Corrected Calcium 9.5 9.6 Magnesium 2.1 2.0 Total Bilirubin 0.6 0.6 AST 18 15 ALT 17 18 Alkaline Phosphatase 92 82 Troponin I < 0.020 Total Protein 6.8 6.2 Albumin 4.5 4.1 Globulin 2.3 2.1 L Albumin/Globulin Ratio 2.0 2.0 Ur Collection Type Catheter Urine Color Lt-Yellow Urine Clarity Clear Urine pH 7.0 Ur Specific [place] 1.008 Urine Protein Negative Urine Glucose (UA) Negative Urine Ketones Negative Urine Blood Negative Urine Nitrite Negative Urine Bilirubin Negative Urine Urobilinogen (Auto) Negative Ur Leukocyte Esterase Negative Urine RBC < 1 Urine WBC < 1 Ur Squamous Epith Cells 0 Urine Bacteria Rare Urine Opiates Screen Negative Urine Fentanyl Screen Negative Ur Barbiturates Screen Negative U Amphetamin/Meth Scrn Negative U Benzodiazepines Scrn Negative U Cocaine Metab Screen Negative U Marijuana (THC) Screen Negative HCG (Qual) Negative Quality Measures Quality Measures stroke Suspected type of Stroke: Non Acute Last known well (date): 12/29/24 Last known well (time): 06:30 Tenecteplase given: Reason(s) Tenecteplase not given: Stroke severity too mild (non-disabling) not given Rehab services: PT evaluation ordered and Speech Language Pathology eval ordered VTE Prophylaxis: pharmaceutical Antithrombotic by day 2:: not indicated (describe) Statin ordered: >75 y/o moderate or high intensity dose Anticoagulation ordered for A- fib or flutter (current or hx): not indicated Advance care planning discussed with:: patient Assessment & Plan Assessment Current Active Medications: Generic Name Dose Route Start Last Admin Trade Name Freq PRN Reason Stop Dose Admin Aspirin 81 mg 12/30/24 09:00 12/30/24 09:24 Aspirin Ec 81 Mg Tabec PO 01/29/25 08:59 81 mg QDAY FREDRICK Administration Buspirone HCl 5 mg 12/30/24 09:45 Buspirone Hcl 5 Mg Tablet PO 01/29/25 09:44 BID FREDRICK Clopidogrel Bisulfate 75 mg 12/30/24 09:00 12/30/24 09:24 Clopidogrel Bisulfate 75 Mg Tablet PO 01/29/25 08:59 75 mg QDAY FREDRICK Administration Ondansetron HCl 4 mg 12/29/24 10:32 Ondansetron Inj 2 Mg/Ml Inj 2 Ml IV 01/28/25 10:31 Q4HR PRN NAUSEA OR VOMITING Rosuvastatin Calcium 20 mg 12/29/24 21:00 12/29/24 20:47 Rosuvastatin 5 Mg Tablet (Non-Form) PO 01/28/25 20:59 20 mg HS FREDRICK Administration Plan Mary Solomon is a 79 y/o female with PMHx HTN and HLD who is currently admitted for acute CVA rule out. #CVA, rule out. #?TIA. Patient could have had a TIA. Patient has been experiencing some symptoms that seem to be focal for the past couple of days. CT head shows no acute hemorrhage mass effect or midline shift. CTA head neck shows no stenosis of LVO. NIHSS Score of 0. No hx of afib, tele reviewed, appears to be NSR. MRI is negative for acute stroke. Plan: ?Neurology consulted, appreciate recs. ?Continue dual antiplatelet therapy aspirin 81 and Plavix 75 mg. ?Speech therapy. ?PT referral. ?Neurochecks q4h. ?Echo pending. #Hypertensive urgency. Appears to be no end organ damage. Pt came in with BP 230, with the paramedics it was recorded to be 260 SBP. Pt was given Hydralazine 10 mg x1 and blood pressure has improved. Will hold on adjusting further. Plan: ?Do not correct SBP over 25% within first 24 hours. ?Will hold on resuming home blood pressure medicines at this time. #Hx of HTN. #Hx of HLD. Chronic, on home valsartan and metoprolol 25 mg. Plan: ?Will hold on resuming home blood pressure medicines at this time as above. ?Lipitor 40 mg HS. Health Maintenance: Disposition: Telemetry, stroke r/o. DVT prophylaxis: Lovenox. GI prophylaxis: None indicated at this time. Diet: Cardiac. CODE STATUS: Full. Plan of care discussed with attending Dr. Chapman. Carroll Cantrell MD, PGY 2. Disclaimer: This note was dictated by speech recognition. Minor errors in wheel and caster repairer may be present due to voice recognition software. Attending Provider Attestation/Addendum I have discussed and was present for the essential components of the history, physical examination, diagnosis, and treatment plan with the resident. I agree with the patient's care as documented by the resident and amended herein by me. Emilio Chapman, DO. Although this document has been carefully reviewed, there may still be some phonetic and other typographical errors. These errors are purely grammatical due to imperfections in the software program and should not be construed in any way to compromise the substance of the patient's medical care during this visit.
[2024-12-30] MEDS: BusPIRone HCL 5 MG TABLET PO (10:22)
--- NOTE | 2024-12-30 11:01 | PC.SS ---
Initial assessment: this is 79 year old female admitted for stroke rule out. Patient appeared alert/oriented. Patient lives at home alone. [address] address: [address] [place] [address]. Patient assigned daughterEdna as her emergency contact. Patient reports being independent with ADL's. Patient has home walker if needed. Patient PCP is Dr. Shantel Galo. Patient pharmacy:[facility] in [place]. Patient wants to return home upon discharge, has transportation access. No needs identified. Community resources provided. D/c plan: Home Next of kin: Edna Mcfarlane
[2024-12-30 11:57] VITALS: BP 121/57; PULSE 76; RESP 16; TEMP 36.8; O2SAT 98
[2024-12-30 12:00] VITALS: BP 155/72; PULSE 68; PULSE 70; RESP 19; TEMP 36.8; O2SAT 94
--- NOTE | 2024-12-30 12:09 | PC.PT ---
PT eval only. Patient is at her PLOF. Patient is safe to ambulate in the nichole and to the bathroom with no DME and no staff assist. RN made aware.
--- NOTE | 2024-12-30 14:34 | PC.SS ---
Rounding note: possible d/c today if echo is read.
--- NOTE | 2024-12-30 15:19 | ESDS_ITS ---
Planned Discharge Date 12/30/24 DS: Providers Provider Date of admission: 12/29/24 16:22 Primary care physician: Shantel Galo MD Admitting Provider: Alec Chapman DO Attending Provider on Admission: Alec Chapman DO Consults: 12/29/24 10:32 Consult to Neurology / Tele-Neurology Routine Comment: Consulting Provider: [facility] 12/29/24 14:44 Consult to Neurology / Tele-Neurology Stat Comment: Consulting Provider: Noe Bauman 12/29/24 19:10 Referral Physical Therapy Routine Comment: Physician Instructions: Referral Speech Therapy Routine Comment: Attending Provider on DC: Alec Chapman DO Discharging Provider: Alec Chapman DO Diagnosis Problem List Completed Was Problem List Reviewed/Reconciled?: Yes Discharge Assessment Assessment: The patient is a 79-year-old female with a significant past medical history of hypertension, hyperlipidemia who came to the ED with complaints of intermittent numbness and tingling in her right arm and perioral area with associated generalized weakness, fatigue and brain fog. The patient states her symptoms were ongoing approximately 1 week prior to admission. Patient subsequently admitted for CVA rule out and hypertensive urgency. In the ED, initial BP 236/141 however did improve with IV labetalol and hydralazine. Other labs largely unremarkable on admission. Initial CT head negative for any acute intracranial pathology, CTA head and neck negative for any large vessel occlusions or thrombus, MRI negative for any acute intracranial pathology however did demonstrate prominent chronic microvascular white matter changes. EKG on arrival demonstrated sinus rhythm. Teleneurology was initially consulted and recommended aspirin and Plavix which the patient has been started on. Patient also on statin. In-house neurology also consulted agreeing with current management, echocardiogram was ordered, demonstrating Negative bubble study, normal LV size and function, EF 6065%, grade 1 diastolic dysfunction, normal RV size and function, RVSP 25, mild TR mild aortic valve stenosis with a V-max of 2.5M/S, mild to moderate MAC and mild MR. No pericardial effusion noted.. The patient needs to follow-up with her primary care physician within 7 to 10 days of discharge, cardiology would also like to see the patient, she can make an appointment at the number given in the instructions to field support specialist, Dr. Conde for further workup and evaluation. Physical therapy also saw the patient, she did well, no further need for PT sessions. The patient felt well, all symptoms have resolved, will be discharged on aspirin, statin and Plavix, recommended to return to the ED for any persistent or worsening symptoms. Patient was stable, afebrile, tolerating p.o. intake and ambulatory at time of discharge home. Problem list: #Hypertensive urgency #Likely TIA Hospital Course - Hospitalist Time Spent with Patient Time attestation: Total time spent providing and/or coordinating discharge services: Discharge Results Labs Diagrams: 12/30/24 04:50 12/30/24 04:50 Labs: Short CBC 12/30/24 Range/Units 04:50 WBC 8.6 (3.6-11.0) Thou/mm3 Hgb 14.6 (12.0-16.0) g/dL Hct 44.4 (36.0-46.0) % Plt Count 204 (140-440) Thou/mm3 BMP 12/30/24 04:50 Sodium 141 Potassium 4.3 Chloride 107 Carbon Dioxide 26.9 BUN 17 Creatinine 0.6 Glucose 107 H Calcium 9.6 Liver Function 12/30/24 Range/Units 04:50 Total Bilirubin 0.6 (0.3-1.2) mg/dL AST 15 (0-34) U/L ALT 18 (10-49) U/L Alkaline Phosphatase 82 (46-116) U/L Albumin 4.1 (3.4-4.8) gm/dL Pending Results Pending results: 12/29/24 11:11 Urine,Catheterized Urine Culture - Pending Exam Vital Signs Temp Pulse Resp BP Pulse Ox O2 Del Method 98.2 F 68 19 155/72 H 94 L Room Air 12/30/24 12:00 12/30/24 12:00 12/30/24 12:00 12/30/24 12:00 12/30/24 12:00 12/30/24 12:00 Discharge Plan Plan Patient Disposition: HOME (Self Care) Disposition Comment: Hospitalist admit Dr Bauman consult Prescriptions/Referrals Prescriptions/Med Rec: New losartan 50 mg tablet 50 mg PO QDAY Qty: 30 0RF aspirin [Ecotrin Low Strength] 81 mg Tablet,Delayed Release (Dr/Ec) 81 mg PO QDAY Qty: 30 0RF clopidogrel 75 mg Tablet 75 mg PO QDAY Qty: 30 0RF Continued Metoprolol Tartrate 25 MG 25 mg PO BID 60 Days Qty: 0 12RF rosuvastatin 20 mg tablet 20 mg PO QDAY Patient Comments: GENERIC FOR CRESTOR. TAKE 1 TABLET BY MOUTH ONCE A DAY Discontinued valsartan [Diovan] 80 MG tablet 80 mg PO QDAY 30 Days Qty: 0 12RF amlodipine [Norvasc] 5 MG tablet 5 mg PO QDAY Qty: 30 12RF cefuroxime axetil 500 mg tablet 500 mg PO BID Qty: 14 0RF meloxicam 15 mg tablet 15 mg PO QDAY Patient Comments: TAKE 1 TABLET BY MOUTH EVERY DAY Referrals: Miguel Conde MD [Physician] - Shantel Galo MD [Primary Care Provider] - Patient/Caregiver Discharge Instructions Other Discharge Activity Instructions:: Please return to the emergency department for persistent or worsening symptoms Other Discharge Diet Instructions: Please follow-up with your primary care provider within 7 to 10 days of discharge for further evaluation Please follow-up with field support specialist, Dr. Conde, and appointment can be made at [phone] for further cardiac evaluation New medications added, please take aspirin 81 mg daily as prescribed as well as Plavix, 75 mg daily Education Materials: ED High Blood Pressure ..., ED TIA: Transient Ischemic Attack Print Language: Mauritian Stand Alone Forms: Rosamaria Award Info., Patient Portal Info Letter Discharge Order Discharge Orders: Discharge (Routine); Ordered 12/30/24 Ordered By: Alec Chapman Quality Discharge Quality Measures VTE prophylaxis and stroke Statin ordered >75 y/o:moderate or high intensity dose on DC: yes Statin ordered <75 y/o: high intensity dose on DC: n/a Statin not ordered due to:: not indicated Anticoagulation ordered for A-fib or flutter (current or hx): not indicated Antithrombotic ordered on DC: ordered
[2024-12-30 16:00] VITALS: BP 162/76; PULSE 74; PULSE 76; RESP 21; TEMP 36.7; O2SAT 94
--- NOTE | 2024-12-30 19:11 | ECHO_ITS ---
Transthoracic Echo Report Ht (in): 62 Wt (lb): 196 Exam Location: Echo Lab Status: Inpatient [employer]: BRIGHT [place]^^^^ Indications: Procedure Performed: BP: 124 / 74 HR: 75 Technical Quality: Fair MEASUREMENTS (Male / Female) Normal Values 2D ECHO LV Diastolic Diameter PLAX 3.9 cm 4.2 - 5.9 / 3.9 - 5.3 cm LV Systolic Diameter PLAX 2.5 cm IVS Diastolic Thickness 1.2 cm 0.6 - 1.0 / 0.6 - 0.9 cm LVPW Diastolic Thickness 1.2 cm 0.6 - 1.0 / 0.6 - 0.9 cm LV Relative Wall Thickness 0.6 LVOT Diameter 1.6 cm Aortic Root Diameter 2.7 cm LA Systolic Diameter LX 3.7 cm 3.0 - 4.0 / 2.7 - 3.8 cm LV Ejection Fraction MOD 2C 60.8 % LV Cardiac Index MOD 2C 2107.6 cm?/min?m? LV Ejection Fraction 2C AL 61.4 % LV Cardiac Index 2C AL 2154.5 cm?/min?m? Ascending Aorta Diameter 3.6 cm DOPPLER AV Peak Velocity 203.0 cm/s AV Peak Gradient 16.5 mmHg AV Mean Gradient 10.0 mmHg AV Velocity Time Integral 43.8 cm LVOT Peak Velocity 102.0 cm/s LVOT Peak Gradient 4.2 mmHg LVOT Velocity Time Integral 30.5 cm LVOT Cardiac Index 2283.5 cm?/min?m? AV Area Cont Eq vti 1.4 cm? AV Area Cont Eq pk 1.0 cm? MV Peak Velocity 119.0 cm/s MV Peak Gradient 5.7 mmHg MV Mean Velocity 85.9 cm/s MV Mean Gradient 3.0 mmHg MV Area PHT 2.8 cm? MR Peak Velocity 337.0 cm/s MR Peak Gradient 45.4 mmHg Mitral E Point Velocity 99.9 cm/s Mitral A Point Velocity 124.0 cm/s Mitral E to A Ratio 0.8 LV E' Lateral Velocity 10.4 cm/s Mitral E to LV E' Lateral Ratio 9.6 LV E' Septal Velocity 8.5 cm/s Mitral E to LV E' Septal Ratio 11.8 TR Peak Velocity 187.0 cm/s TR Peak Gradient 14.0 mmHg RVOT Peak Velocity 64.3 cm/s FINDINGS Left Ventricle There is mild concentric left ventricular hypertrophy. The left ventricular ejection fraction is normal, estimated at 60-65%. There is grade I diastolic dysfunction of the left ventricle (impaired relaxation pattern). Right Ventricle The right ventricle is normal in size and systolic function. The estimated right ventricular systolic pressure, 19 mmHg. Left Atrium Normal left atrial size with no evidence of thrombus formation. Right Atrium The right atrium is normal by two-dimensional imaging, color flow and Doppler imaging with no structural abnormalities, no thrombus formation present. Atrial Septum The interatrial septum is normal to color flow Doppler and agitated saline imaging. Aorta The aorta is normal by two-dimensional, color flow and Doppler interrogation. Mitral Valve Severe mitral annular calcification. Severe thickening of the mitral valve leaflets. [id number] mitral regurgitation. Aortic Valve Mild aortic valve stenosis, mean gradient 10 mmHg, DEMETRIA 1.4 cm?. Tricuspid Valve There is mild tricuspid valve regurgitation. Pulmonic Valve Trivial pulmonic valve regurgitation. Vessels The pulmonary artery appears normal. The inferior vena cava pulmonary and hepatic veins appear normal. Pericardium The pericardium is normal by two-dimensional imaging. There is no significant pericardial effusion. CONCLUSIONS Indication: Stroke Bubble study negative for any PFO or ASD. Consider NADJA if high clinical index of suspicion. Normal LV size and function with an EF of 60 to 65%. Diastolic dysfunction stage I. Normal RV size and function. Normal RVSP 25 mmHg. Mild TR Mild aortic valve stenosis with the V-max of 2.5 m/s. Mild to moderate MAC. Mild MR. No pericardial effusion. Miguel Conde (Electronically Signed) Final Date: 30 December 2024 16:32
== END 2024-12-30 17:20 | disposition home or self-care (01) | DRG 69 ==
LOC: SERX 15:09 → SERHOLD 16:58 → S2NX 17:21
PROVIDERS: Admitting Provider Student in an Organized Health Care Education/Training Program; Emergency Provider Emergency Medicine; PCP Family Medicine; Visit Provider Student in an Organized Health Care Education/Training Program
DX: G45.9 Transient cerebral ischemic attack, unspecified (principal); R53.1 Weakness; I10 Essential (primary) hypertension; E78.5 Hyperlipidemia, unspecified; F41.9 Anxiety disorder, unspecified; I16.0 Hypertensive urgency; Z87.891 Personal history of nicotine dependence; Z63.4 Disappearance and death of family member; Z79.899 Other long term (current) drug therapy
CPT/HCPCS: 36415; 70450; 70496; 70498; 70551; 80053; 80307; 81001; 83735; 84484; 84703; 85025; 85610; 85730; 87086; 92523; 93005; 93306; 97161; 99291; A4649; J0360; J1650; Q9967; A9270

== ENCOUNTER 2025-01-05 06:38 | Emergency (ER) | payer MEDICARE, BC, SELFPAY ==
[2025-01-05 06:48] VITALS: BP 178/81; PULSE 65; RESP 18; TEMP 36.8; O2SAT 97
[2025-01-05 06:51] VITALS: PULSE 63; RESP 18; O2SAT 97; BMI 33.3
--- NOTE | 2025-01-05 07:16 | PD.EDADULT ---
ED General RME/HPI General Chief complaint: General Adult/Misc Complain Stated complaint: ELEVATED BP Time Seen by Provider: 01/05/25 06:49 Arrival date/time: 01/05/25 06:38 79-year-old female with history of hypertension, hypercholesterolemia and anxiety presents to the emergency department today via EMS for complaints of elevated blood pressure patient reports that she woke up about 2 in the morning and decided to take her blood pressure patient reports she is taking it 4 different times initially the blood pressure was only mildly elevated but she reports the fourth time she took it was over 200 patient reports she had a recent admission to the hospital and was told if her blood pressure goes over 200 to come to the ER. Currently patient reports no headache no dizziness no chest pain no shortness of breath patient reports she feels well Limitations: no limitations Related Data Home Medications ?Medication ?Instructions ?Recorded ?Confirmed rosuvastatin 20 mg tablet 20 mg PO QDAY 12/29/24 12/29/24 Previous Rx's ?Medication ?Instructions ?Recorded Metoprolol Tartrate 25 mg PO BID 60 days #0 tabs 07/30/14 aspirin 81 mg tablet,delayed 81 mg PO QDAY #30 tabs 12/30/24 release (Ecotrin Low Strength) clopidogrel 75 mg tablet 75 mg PO QDAY #30 tabs 12/30/24 losartan 50 mg tablet 50 mg PO QDAY HTN #30 tabs 12/30/24 Allergies Allergy/AdvReac Type Severity Reaction Status Date / Time No Known Allergies Allergy Unverified 12/30/24 08:07 Review of Systems Review of Systems Systems Reviewed: All systems reviewed, normal except as documented Constitutional Constitutional: Reports system reviewed and no additional complaints, except as documented, Denies fever(s) and Denies headache(s) Eyes Eyes: Reports system reviewed and no additional complaints, except as documented and Denies blurry vision ENT Ears, Nose, Mouth, and Throat: Reports system reviewed and no additional complaints, except as documented, Denies headache(s), Denies nasal congestion and Denies nasal discharge Cardiovascular Cardiovascular: Reports system reviewed and no additional complaints, except as documented, Denies chest pain and Denies dyspnea Respiratory Respiratory: Reports system reviewed and no additional complaints, except as documented, Denies chest congestion, Denies cough and Denies dyspnea Gastrointestinal Gastrointestinal: Reports system reviewed and no additional complaints, except as documented and Denies abdominal pain Integumentary/Breasts Skin/Breast: Reports system reviewed and no additional complaints, except as documented and Denies rash Neurologic Neurologic: Reports system reviewed and no additional complaints, except as documented, Reports as per HPI and Denies headache(s) Psychiatric Psychiatric: Reports system reviewed and no additional complaints, except as documented and Reports anxiety Past Medical History Past Medical History NEUROLOGIC: Negative Neurological Disorders CARDIAC: Positive Cardiac Disorders, Hypercholesterolemia and Hypertension; Negative Congestive Heart Failure RESPIRATORY: Positive Bronchitis and Pneumonia; Negative Chronic Obstructive Pulmonary Disease (COPD) GENITOURINARY: Negative Renal Disease REPRODUCTIVE: Positive Previous Pregnancies MUSCULOSKELETAL: Positive Musculoskeletal Disorders, Arthritis and Degenerative Disk Disease ENT: Positive Cataracts ENDOCRINE: Negative Diabetes Mellitus Type 1 or Diabetes Mellitus Type 2 PSYCHO/SOCIAL: Positive Bipolar Disorder, Depression and Anxiety OTHER HISTORY: Positive Chicken Pox and Cervical Cancer Family History FAMILY HISTORY: Negative Family Cardiac Disorders Surgical History SURGICAL: Positive Oral Surgery, Adenoidectomy and Throat Surgery Social History SMOKING STATUS: Never smoker ED Exam General Limitations: Present no limitations General appearance: Present alert and in no apparent distress Head Head exam: Present atraumatic, normocephalic and normal inspection Eye Eye exam: Present normal appearance, PERRL and EOMI; Absent conjunctival injection ENT ENT exam: Present normal exam, normal oropharynx and mucous membranes moist Neck Neck exam: Present normal inspection, full ROM and trachea midline Chest Chest inspection: Present normal inspection and symmetric chest wall rise Respiratory Respiratory exam: Present normal lung sounds bilaterally; Absent respiratory distress, wheezes, stridor, accessory muscle use or prolonged expiratory phase Cardiovascular Cardiovascular exam: Present regular rate, normal rhythm and normal heart sounds Abdominal Exam Abdominal exam: Present soft and normal bowel sounds; Absent distention, tenderness, guarding, rebound or rigidity Extremities Exam Extremities exam: Present normal inspection and full ROM Back Exam Back exam: Present normal inspection and full ROM Neurological Exam Neurological exam: Present alert, oriented X3 and CN II-XII intact Psychiatric Psychiatric exam: Present normal affect and normal mood Skin Skin exam: Present warm, dry, intact and normal color Course Quality Measures none Vital Signs Vital signs: Vital Signs Temperature 98.2 F 01/05/25 06:48 Pulse Rate 65 01/05/25 06:48 Respiratory Rate 18 01/05/25 06:48 Blood Pressure 178/81 H 01/05/25 06:48 Pulse Oximetry (%) 97 01/05/25 06:48 Oxygen Delivery Method Room Air 01/05/25 06:48 O2 saturation 97% room air within normal limits MDM Patient data External records reviewed:: [facility] previous records Clinical information provided by:: patient Social determinants that could affect healthcare access:: none Patient has the following chronic illnesses:: Hypertension, anxiety How is presenting disease/condition affected by chronic disease/condition?: caused by Evaluation data The following diagnostics were reviewed and interpreted by me:: other (specify) (N/A) Lab and/or radiology exams considered but not ordered:: Consider not ordered Interpretation Summary: N/A Medications Medications considered but not ordered:: No meds Medication administrations:: No meds Consultations Consultation(s) initiated? (list below): No Diagnosis Differential Diagnosis ED Complaint MDM: Headache, dizziness, hypertension, asymptomatic hypertension, anxiety Most likely diagnosis given after review of the tests above:: Asymptomatic hypertension, anxiety Admission Indicated Admission indicated?: not indicated Explain why admission is indicated or not indicated:: No criteria Admission Request Was there a request for admission?: No Disposition Plan Disposition Plan: Discharge Discharge Attestation Discharge Attestation: The patient and all family members were given an opportunity to ask questions and understood the discharge instructions. Discharge instructions specifically effects, indications for sooner follow up or return to the emergency department, and the expected course of current diagnosis. Patient condition: Stable Medical Decision Making MDM Narrative MDM Narrative: 79-year-old female with history of hypertension, hypercholesterolemia and anxiety presents to the emergency department today via EMS for complaints of elevated blood pressure patient reports that she woke up about 2 in the morning and decided to take her blood pressure patient reports she is taking it 4 different times initially the blood pressure was only mildly elevated but she reports the fourth time she took it was over 200 patient reports she had a recent admission to the hospital and was told if her blood pressure goes over 200 to come to the ER. Currently patient reports no headache no dizziness no chest pain no shortness of breath patient reports she feels well On exam patient well-appearing patient does not appear ill or toxic patient does share that she has anxiety and stress and believes that is the cause of her symptoms Currently patient categorically denies any headache dizziness chest pain shortness of breath or abdominal pain and reports that if the blood pressure is what it was here she would not have come Patient had 2 separate blood pressures taken her blood pressure is mildly elevated but patient does have a history of hypertension has not yet taken her blood pressure medication Patient does have a bag of her blood pressure medication here patient is given a cup of water and patient took her blood pressure medication Patient discharged home in no distress to follow-up with primary care doctor in the next 24 to 48 hours and for any worsening symptoms to return to the ER immediately Differential Diagnosis Differential Diagnosis: Headache, dizziness, hypertension, asymptomatic hypertension, anxiety Medical Records Medical records reviewed: Yes I reviewed the patient's medical records. Discharge Plan Plan Patient Disposition: HOME (Self Care) Disposition Comment: Stable Prescriptions/Referrals Prescriptions/Med Rec: No Action Metoprolol Tartrate 25 MG 25 mg PO BID 60 Days Qty: 0 12RF rosuvastatin 20 mg tablet 20 mg PO QDAY Patient Comments: GENERIC FOR CRESTOR. TAKE 1 TABLET BY MOUTH ONCE A DAY losartan 50 mg tablet 50 mg PO QDAY Qty: 30 0RF aspirin [Ecotrin Low Strength] 81 mg Tablet,Delayed Release (Dr/Ec) 81 mg PO QDAY Qty: 30 0RF clopidogrel 75 mg Tablet 75 mg PO QDAY Qty: 30 0RF Problem List Clinical Impression: Asymptomatic hypertension, Anxiety Patient/Caregiver Discharge Instructions Education Materials: Hypertension Dc Additional Instructions: Please follow up with your primary care doctor in the next 24-48hrs for any worsening symptoms return here immediately Print Language: Korean Stand Alone Forms: Rosamaria Award Info., Patient Portal Info Letter PA/MATE RELIEF Supervising Physician PA/MATE RELIEF Supervising Physician: Dr salazar
[2025-01-05 07:26] VITALS: BP 176/78
== END 2025-01-05 07:26 | disposition home or self-care (01) ==
LOC: SERX 07:29
PROVIDERS: Emergency Provider Emergency Medicine; PCP Family Medicine
DX: F41.9 Anxiety disorder, unspecified (principal); I10 Essential (primary) hypertension
CPT/HCPCS: 99283